=== PATIENT | female | born 2000 | race Caucasian/White ===

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

== ENCOUNTER 2019-04-03 16:45 | Emergency (ER) | payer OTHER ==
[2019-04-03 16:51] VITALS: BP 129/93; PULSE 77; TEMP 98.4; BMI 22.3
--- NOTE | 2019-04-03 16:51 | PDOC ---
Rapid Medical Evaluation Time Seen by Provider: 04/03/19 16:49 Medical Evaluation: Allergies Allergy/AdvReac Type Severity Reaction Status Date / Time No Known Allergies Allergy Verified 06/24/17 16:59 04/03/19 16:49 Healthy 19-year-old female with one hour of non-traumatic left index finger pain , swelling, numbness. Subjective decreased sensation left index finger. Able to flex at PIP, difficulty at DIP. I have ordered the following: pgu (patient states LMP January?), hand xray. Patient to proceed to FT for further evaluation. Discharge Disposition - Diagnosis Finger pain, left - Referrals - Patient Instructions - Post Discharge Activity
--- NOTE | 2019-04-03 17:26 | PDOC ---
History of Present Illness - General Chief Complaint: Pain, Acute Stated Complaint: PAIN Time Seen by Provider: 04/03/19 16:49 History Source: Patient Exam Limitations: No Limitations - History of Present Illness Initial Comments: 04/03/19 17:42 19 year old female with no significant medical or surgical history presents with pain to left index finger. 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 States tip of finger with some numbness. 04/03/19 17:50 04/03/19 17:52 Occurred: reports: just prior to arrival Severity: reports: mild Upper Extremity Pain Location: left: 2nd finger Method of Injury: reports: unknown Modifying Factors: improves with: other (no intervention) Extremity Pain Location - Extremity Pain Location Extremity Pain Locations: left: 2nd finger Past History - Travel Traveled outside of the country in the last 30 days: No Close contact w/someone who was outside of country & ill: No - Past Medical History Allergies/Adverse Reactions: Allergies Allergy/AdvReac Type Severity Reaction Status Date / Time No Known Allergies Allergy Verified 06/24/17 16:59 Home Medications: Ambulatory Orders Pseudoephedrine HCl 30 mg PO Q6H PRN #14 tablet 06/24/17 COPD: No - Immunization History Immunization Up to Date: No - Psycho Social/Smoking Cessation Hx Smoking History: Never smoked Have you smoked in the past 12 months: No Information on smoking cessation initiated: No Hx Alcohol Use: No Drug/Substance Use Hx: No Substance Use Type: None Review of Systems - Review of Systems Able to Perform ROS?: Yes Is the patient limited Estonian proficient: No Constitutional: No: Chills, Fever HEENTM: No: Double Vision, Throat Pain Respiratory: No: Orthopnea, Shortness of Breath, Wheezing Cardiac (ROS): No: Chest Pain, Lightheadedness ABD/GI: No: Blood Streaked Bowels, Poor Appetite, Poor Fluid Intake, Indigestion : No: Incontinence Musculoskeletal: No: Back Pain, Muscle Weakness Integumentary: Yes: Other (left finger cramping and bruising ) Neurological: No: Headache, Numbness Psychiatric: No: Stressors *Physical Exam - Vital Signs Last Vital Signs Temp Pulse Resp BP Pulse Ox 98.4 F 77 20 129/93 100 04/03/19 16:49 04/03/19 16:49 04/03/19 16:49 04/03/19 16:49 04/03/19 16:49 - Physical Exam General Appearance: Yes: Nourished, Appropriately Dressed HEENT: positive: JULIUS Neck: positive: Supple. negative: Lymphadenopathy (R), Lymphadenopathy (L) Respiratory/Chest: positive: Lungs Clear Cardiovascular: positive: Regular Rhythm, Regular Rate Extremity: positive: Normal Capillary Refill, Other (+bruising to left index finger dip, able to flex and extend finger) Neurologic: positive: dragline mechanic II-XII NML intact, Fully Oriented Medical Decision Making - Medical Decision Making 19 year old female with no significant medical or surgical history presents with pain to left index finger. 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 Left finger injury urine xray of finger 04/03/19 19:19 negative fracture of the finger d/c home Discharge - Discharge Information Problems reviewed: Yes Clinical Impression/Diagnosis: Finger pain, left Condition: Stable Disposition: HOME - Admission No - Follow up/Referral - Patient Discharge Instructions Patient Printed Discharge Instructions: Finger Sprain Additional Instructions: Take ibuprofen or acetaminophen as needed May follow up with primary physician - Post Discharge Activity Work/Back to School Note: Back to Work
== END 2019-04-03 19:25 | disposition home or self-care (01) ==
LOC: JERFT 16:45
DX: M79.645 Pain in left finger(s) (principal); M70.842 Other soft tissue disorders related to use, overuse and pressure, left hand; Y93.89 Activity, other specified
CPT/HCPCS: 73130-TC-LT-FY; 84703; 99282-25

== ENCOUNTER 2019-09-08 09:11 | Emergency (ER) | payer OTHER ==
[2019-09-08 09:21] VITALS: TEMP 98.1; BMI 22.6
--- NOTE | 2019-09-08 10:40 | PDOC ---
History of Present Illness <Ariela Moore - Last Filed: 09/08/19 11:32> - General History Source: Patient Exam Limitations: No Limitations - History of Present Illness Initial Comments: 09/08/19 10:33 Patient is a 19-year-old female with no past medical history who presents to the ED with mid and left sternal chest pain that she has had for the last 2 days. She states the pain is pressure-like in nature. She denies any radiation of the pain. She denies any jaw pain, arm pain or back pain. She has not taken anything for her symptoms. She states the pain started suddenly while laying down in bed. It was initially intermittent but now it is constant. She denies any family history of cardiac disease. She denies any recent long travel in a car or plane. She is a non-smoker. The patient states the pain began to concern her so she came to the ED for evaluation. <Mary Vuong - Last Filed: 09/08/19 12:32> - General Chief Complaint: Chest Pain Stated Complaint: CHEST PAIN Time Seen by Provider: 09/08/19 09:50 Past History <Ariela Moore - Last Filed: 09/08/19 11:32> - Past Medical History COPD: No Other medical history: Denies medical hx - Immunization History Immunization Up to Date: No - Psycho Social/Smoking Cessation Hx Smoking History: Unknown if ever smoked Have you smoked in the past 12 months: No Information on smoking cessation initiated: No Hx Alcohol Use: No Drug/Substance Use Hx: No Substance Use Type: None <Mary Vuong - Last Filed: 09/08/19 12:32> - Past Medical History Allergies/Adverse Reactions: Allergies Allergy/AdvReac Type Severity Reaction Status Date / Time No Known Allergies Allergy Verified 09/08/19 09:21 Home Medications: Ambulatory Orders Pseudoephedrine HCl 30 mg PO Q6H PRN #14 tablet 06/24/17 Review of Systems - Review of Systems Comments:: 09/08/19 10:34 - Review of Systems Able to Perform ROS?: Yes Constitutional: No: Fever, Chills, Loss of Appetite, Night Sweats, Weakness HEENTM: No: Eye Pain, Vision changes, Ear Pain, Throat Pain, Throat Swelling, Mouth Pain, Difficulty Swallowing Respiratory: No: Cough, Shortness of Breath, Wheezing, Sputum Production Cardiac (ROS): No: Chest Tightness, Palpitations, Irregular Heart Beat, Edema; positive: Chest pain/pressure ABD/GI: No: Nausea, Vomiting, Abdominal Pain, Diarrhea : No Dysuria, No Hematuria, No Frequency, No Urgency, No Vaginal Discharge/ Pain Musculoskeletal: No: Muscle Pain, Back Pain, Joint Pain, Muscle Weakness, Neck Pain Integumentary: No: Lesions, Rash Neurological: No: Headache, Numbness, Tingling, Weakness, Speech Difficulties <Mary Vuong - Last Filed: 09/08/19 12:32> *Physical Exam - Vital Signs Last Vital Signs Temp Pulse Resp BP Pulse Ox 98.1 F 74 16 120/67 98 09/08/19 09:15 09/08/19 09:15 09/08/19 09:15 09/08/19 09:15 09/08/19 09:15 <Ariela Moore - Last Filed: 09/08/19 11:32> - Vital Signs Last Vital Signs Temp Pulse Resp BP Pulse Ox 98.1 F 74 16 120/67 98 09/08/19 09:15 09/08/19 09:15 09/08/19 09:15 09/08/19 09:15 09/08/19 09:15 - Physical Exam 09/08/19 10:35 - Physical Exam General Appearance: Nourished, Appropriately Dressed, No Distress HEENT: EOMI, Normal Voice, No Muffled/Hoarse voice, No Nasal Congestion, No Rhinorrhea, Hearing Grossly Normal Neck: Supple, No Lymphadenopathy (R), No Lymphadenopathy (L), No Rigidity, No Decreased range of motion Respiratory/Chest: Lungs Clear, Normal Breath Sounds. No Respiratory Distress, No Accessory Muscle Use; good air entry bilaterally, no wheezes/rales/rhonchi Cardiovascular: Regular Rhythm, Regular Rate, S1, S2; mild reproducible chest wall tenderness to the midsternal and left sternal regions. No step-off or flail chest appreciated. Gastrointestinal/Abdominal: Normal Bowel Sounds, Soft. Non-tender, No Guarding , No Rebound, No Rigidity Musculoskeletal: Normal Inspection. No Decreased Range of Motion Extremity: Normal Capillary Refill, Normal Inspection Integumentary: Normal Color, Dry. No Rash Neurologic: manager personal II-XII NML intact, Fully Oriented, Alert, Normal Mood/Affect, Normal Response <Mary Vuong - Last Filed: 09/08/19 12:32> Heart Score/ECG Review - History History: Slightly suspicious - Electrocardiogram EKG: Non specific repolarization disturbance - Age Age: </= 45 - Risk Factors Based on the list above the patient has:: 1-2 risk factors - Troponin Troponin: </= normal limit - Score Heart Score - Total: 2 - ECG Intrepretation Rhythm: Regular Rhythm - [place]: Normal - ST and T Non Specific ST-T Wave changes: Yes <Mary Vuong D - Last Filed: 09/08/19 12:32> ED Treatment Course - LABORATORY CBC & Chemistry Diagram: 09/08/19 10:26 09/08/19 10:26 - ADDITIONAL ORDERS Additional order review: Laboratory Results 09/08/19 09/08/19 09/08/19 10:26 10:26 10:26 PT with INR INR PTT (Actin FS) D-Dimer < 215 Sodium 140 Potassium 4.2 Chloride 107 Carbon Dioxide 28 Anion Gap 6 L BUN 10.1 Creatinine 0.5 L Est GFR (CKD-EPI)AfAm 160.35 Est GFR (CKD-EPI)NonAf 138.35 Random Glucose 86 Calcium 8.9 Magnesium 2.1 Total Bilirubin 0.5 AST 19 ALT 22 Alkaline Phosphatase 70 Creatine Kinase 239 H Troponin I < 0.02 Total Protein 7.9 Albumin 4.2 Serum , Qual Negative 09/08/19 10:26 PT with INR 12.10 INR 1.03 PTT (Actin FS) 37.7 H D-Dimer Sodium Potassium Chloride Carbon Dioxide Anion Gap BUN Creatinine Est GFR (CKD-EPI)AfAm Est GFR (CKD-EPI)NonAf Random Glucose Calcium Magnesium Total Bilirubin AST ALT Alkaline Phosphatase Creatine Kinase Troponin I Total Protein Albumin Serum , Qual 09/08/19 10:26 RBC 4.48 MCV 90.3 MCHC 34.1 RDW 12.8 MPV 9.2 Neutrophils % 67.3 Lymphocytes % 22.5 Monocytes % 7.7 Eosinophils % 1.9 Basophils % 0.6 <Ariela Moore - Last Filed: 09/08/19 11:32> - LABORATORY CBC & Chemistry Diagram: 09/08/19 10:26 09/08/19 10:26 - RADIOLOGY Radiology Studies Ordered: Category Date Time Status CHEST PA & LAT [RAD] Stat Radiology 09/08/19 10:14 Ordered <Mary Vuong - Last Filed: 09/08/19 12:32> Medical Decision Making - Medical Decision Making The patient was seen and evaluated in conjunction with midlevel provider under my direct supervision, ancillary studies were reviewed. I agree with the plan as outlined with MICHAEL Vuong. HPI, workup/dispo as outlined. VS reviewed, wnl. ECG is sinus rhythm at 78 bpm, normal intervals, narrow QRS and complexes. Isolated T wave inversion in V3 otherwise no ST depressions or elevations. labs and lytes wnl, reassuring neg trop, ECG NSR dimer also neg, so unlikely PE. anticipate discharge, pcp followup, return precautions 09/08/19 11:32 <Ariela Moore - Last Filed: 09/08/19 11:32> - Medical Decision Making 09/08/19 10:36 Assessment: Patient is a 19-year-old female with midsternal left sternal chest pain for the last 2 days. Plan: -Labs ordered including cardiac profile and d-dimer -Chest x-ray ordered -EKG done in triage -Will reassess EKG: Normal sinus rhythm at 78 bpm. Flipped T waves in leads III and V3. PERC score: 0 criteria <2% chance of PE. If no criteria are positive and clinicians pre-test probability is <15%, PERC Rule criteria are satisfied. Wells criteria for PE: 0.0 points Low risk group: 1.3% chance of PE in an ED population. 09/08/19 12:22 The patient is feeling well. She has been made aware that her labs are all within normal limits. If CXR negative then anticipate discharge with close f/u with her PCP. I have made the patient aware of these findings and she understands and agrees with this treatment and plan. 09/08/19 12:29 The patient's chest x-ray was reviewed with Dr. Moore, and is negative for any acute pathology. I have made the patient aware of these findings. She should follow-up with her primary doctor within 1 to 2 days for repeat evaluation. She understands and agrees with this treatment plan and she is stable for discharge. She has been given strict return precautions such as worsening chest pain, shortness of breath, high fevers, profuse vomiting or any other worsening symptoms. <Mary Vuong - Last Filed: 09/08/19 12:32> Discharge <TeresaAriela Pacheco - Last Filed: 09/08/19 11:32> - Discharge Information Problems reviewed: Yes <aMry Vuong - Last Filed: 09/08/19 12:32> - Discharge Information Clinical Impression/Diagnosis: Atypical chest pain Condition: Stable Disposition: HOME - Patient Discharge Instructions Patient Printed Discharge Instructions: DI for Atypical Chest Pain Additional Instructions: Get plenty of rest and drink plenty of fluids. Be sure to follow-up with your primary doctor within 1 to 2 days for repeat evaluation. Avoid any strenuous activity until he follows up with your primary doctor. Return to the emergency department for worsening chest pain, shortness of breath, high fevers, profuse vomiting or any other worsening symptoms. - Post Discharge Activity Work/Back to School Note: Back to Work
[2019-09-08 10:51] LABS: BASO % 0.6 % (0-2.0); EOS % 1.9 % (0-4.5); HEMATOCRIT 40.5 % (32.4-45.2); HEMOGLOBIN 13.8 GM/dL (10.7-15.3); LYMPH % 22.5 % (8-40); MCH 30.8 pg (25.7-33.7); MCHC 34.1 g/dl (32.0-36.0); MEAN CELL VOLUME 90.3 fl (80-96); MEAN PLT VOLUME 9.2 fl (7.5-11.1); MONO % 7.7 % (3.8-10.2); NEUT % 67.3 % (42.8-82.8); PLATELET COUNT 188 K/MM3 (134-434); RBC 4.48 M/mm3 (3.60-5.2); RDW 12.8 % (11.6-15.6); WHITE BLOOD COUNT 6.6 K/mm3 (4.0-10.0)
[2019-09-08 11:06] LABS: INR 1.03 (0.83-1.09); PROTHROMBIN TIME (PATIENT) 12.1 SEC (9.7-13.0)
[2019-09-08 11:08] LABS: ACTIVATED PTT 37.7 SECONDS (25.2-36.5)
[2019-09-08 11:22] LABS: ALBUMIN 4.2 g/dl (3.4-5.0); ALK PHOS 70 U/L (45-117); ANION GAP 6 MMOL/L (8-16); BILIRUBIN,TOTAL 0.5 mg/dL (0.2-1); BLOOD UREA NITROGEN 10.1 mg/dL (7-18); CALCIUM 8.9 mg/dL (8.5-10.1); CHLORIDE 107 mmol/L (98-107); CO2 28 mmol/L (21-32); CREATININE 0.5 mg/dL (0.55-1.3); GLUCOSE,RANDOM 86 mg/dL (74-106); MAGNESIUM 2.1 mg/dL (1.8-2.4); POTASSIUM 4.2 mmol/L (3.5-5.1); SGOT/AST 19 U/L (15-37); SGPT/ALT 22 U/L (13-61); SODIUM 140 mmol/L (136-145); TOT PROT 7.9 g/dl (6.4-8.2)
[2019-09-08 13:33] VITALS: BP 114/73; PULSE 82
--- NOTE | 2019-09-08 16:23 | EKG ---
Test Reason : Blood Pressure : / mmHG Vent. Rate : 078 BPM Atrial Rate : 078 BPM P-R Int : 140 ms QRS Dur : 088 ms QT Int : 368 ms P-R-T Axes : 062 038 024 degrees QTc Int : 419 ms NORMAL SINUS RHYTHM NORMAL ECG NO PREVIOUS ECGS AVAILABLE Confirmed by MD Jerry, Carmelo ([id number]) on 09/08/2019 4:22:54 PM Referred By: Confirmed By:Carmelo Edwards MD
== END 2019-09-08 12:40 | disposition home or self-care (01) ==
LOC: JER 09:11
DX: R07.89 Other chest pain (principal)
CPT/HCPCS: 36415; 71046-TC-FY; 80053; 82550; 82553; 83735; 84484; 84703; 85025; 85379; 85610; 85730; 93005; 93010; 99285-25